=== PATIENT | male | born 1965 | race African-American/Black ===

== ENCOUNTER → 2020-02-06 | Outpatient (CLI) | payer BC ==
--- NOTE | 2020-02-06 12:02 | RADIOLOGY REPORT (SQ) ---
EXAM DESCRIPTION: SACRUM AND COCCYX IMAGES COMPLETED DATE/TIME: 02/06/2020 11:34 am REASON FOR STUDY: Z51.81 ENCOUNTER FOR THERAPEUTIC DRUG LEVEL MONITORING Z51.81 ENCOUNTER FOR THERA PEUTIC DRUG LEVEL MONITORING COMPARISON: None. NUMBER OF VIEWS: Three views. TECHNIQUE: AP, lateral, and tilt views of the sacrum and coccyx. LIMITATIONS: None. FINDINGS: MINERALIZATION: Normal. BONES: There is no acute fracture or dislocation. There is no diastasis of the pubic symphysis. The sacral ala are intact. There is no abnormal sclerosis, erosion or widening of the sacroiliac joints . SOFT TISSUES: No soft tissue swelling or radiopaque foreign body. OTHER: No other finding. IMPRESSION: No acute osseous abnormality of the sacrum and coccyx. TECHNICAL DOCUMENTATION: JOB ID: [id number] [employer]- All Rights Reserved Reading location - IP/workstation name: [email or web address]
== END ==
LOC: RAD 11:06
PROVIDERS: ATTEND Physician Assistant
DX: Z51.81 Encounter for therapeutic drug level monitoring (principal); Z79.899 Other long term (current) drug therapy
CPT/HCPCS: 72220